=== PATIENT | female | born 1985 | race Caucasian/White ===

== ENCOUNTER 2018-11-20 21:13 | Emergency (ER) | payer MEDICAID, OTHER ==
--- NOTE | 2018-11-20 22:18 | CRLCR ---
INDICATION: pt. twisted left ankle TECHNIQUE: Left ankle 4 views. COMPARISON: None. FINDINGS: Bones: Alignment is normal. No fractures or bone lesions. Joint spaces: Unremarkable. Soft tissues: Unremarkable. IMPRESSION: Unremarkable left ankle. Dictated by: George Johnson MD @ 11/20/2018 22:17:26 (Electronically Signed)
[2018-11-20] MEDS ORDERED: Acetaminophen/HYDROcodone 325-5 MG Tab PO ONE (22:22)
--- NOTE | 2018-11-20 22:22 | EDM.PDOC ---
ED HPI GENERAL MEDICAL PROBLEM - General Chief Complaint: Lower Extremity Injury/Pain Stated Complaint: LEFT ANKLE INJURY Time Seen by Provider: 11/20/18 21:40 Source of Information: Reports: Patient History Limitations: Reports: No Limitations - History of Present Illness INITIAL COMMENTS - FREE TEXT/NARRATIVE: pt arrived with a swollen ankle laterally. She was going up the steps and she twisted the ankle inward. 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: Reports: - Past Surgical History Female Surgical History: Reports: Section Social & Family History - Tobacco Use Smoking Status *Q: Never Smoker - Caffeine Use Caffeine Use: Reports: Coffee - Recreational Drug Use Recreational Drug Use: No Review of Systems - Review of Systems Review Of Systems: See Below Constitutional: Reports: No Symptoms Eyes: Reports: No Symptoms Ears: Reports: No Symptoms Nose: Reports: No Symptoms Mouth/Throat: Reports: No Symptoms Respiratory: Reports: No Symptoms Cardiovascular: Reports: No Symptoms GI/Abdominal: Reports: No Symptoms Musculoskeletal: Reports: Other (pt has pain onm the lateral aspect of the left ankle. ) Skin: Reports: No Symptoms Neurological: Reports: No Symptoms ED EXAM, GENERAL - Physical Exam Exam: See Below Free Text/Narrative:: pt aarrived with pain on the lateral aspect of the left ankle. She is quite uncomfortable when she trys to walk on the ankle. Exam Limited By: No Limitations General Appearance: Alert, Anxious, Mild Distress Ears: Normal TMs Nose: Normal Inspection Throat/Mouth: Normal Inspection Head: Atraumatic Extremities: Other (left ankle is swollen laterally. She is uncomfortable with weight bearing. There is no bruising or discoloratiopn noted at this time. ) Neurological: Alert, Oriented, Normal Cognition Course - Vital Signs Last Recorded V/S: Last Vital Signs Temp 35.7 C 11/20/18 21:37 Pulse 105 H 11/20/18 21:37 Resp 16 06/06/19 21:37 BP 148/94 H 11/20/18 21:37 Pulse Ox 97 11/20/18 21:37 - Orders/Labs/Meds Orders: Active Orders 24 hr Category Date Time Status Ankle Min 3V Lt [CR] Stat Exams 11/20/18 21:43 Taken - Re-Assessments/Exams Free Text/Narrative Re-Assessment/Exam: 11/20/18 22:22 xray did not reveal a fracture. Departure - Departure Time of Disposition: 22:22 Disposition: Home, Self-Care 01 Condition: Fair Clinical Impression: Left ankle sprain - Discharge Information Referrals: Raquel Hdz PA [Primary Care Provider] - Care Plan Goals: elevate, cool pack, stirup splint, crutches motrin 600mg q6h as needed for pain. - My Orders Last 24 Hours: My Active Orders 11/20/18 21:43 Ankle Min 3V Lt [CR] Stat - Assessment/Plan Last 24 Hours: My Active Orders 11/20/18 21:43 Ankle Min 3V Lt [CR] Stat
== END 2018-11-20 22:55 | disposition home or self-care (01) ==
LOC: JP.ED 21:13
DX: S93.402A Sprain of unspecified ligament of left ankle, initial encounter (principal); X50.1XXA Overexertion from prolonged static or awkward postures, initial encounter
CPT/HCPCS: 73610; 99283; A9270

== ENCOUNTER 2022-10-25 05:28 | Day surgery (SDC) | payer MEDICAID ==
[2022-10-25] MEDS ORDERED: Celecoxib 200 MG Cap PO ONE (05:30)
[2022-10-25] MEDS ORDERED: Dextrose 5%-Lactated Ringers 1,000 ML IV SCH (06:00)
[2022-10-25 06:06] LABS: HEMATOCRIT 40.4 % (34.3-46.0); HEMOGLOBIN 14.5 g/dL (11.2-15.5); MEAN CORPUSCULAR HEMOGLOBIN 32.2 pg (31.6-35.5); MEAN CORPUSCULAR HGB CONC 35.9 g/dL (31.6-35.5); MEAN CORPUSCULAR VOLUME 89.6 fL (81.4-99.0); RED BLOOD CELL COUNT 4.51 M/uL (3.77-5.24)
[2022-10-25] MEDS ORDERED: Indocyanine Green 25 MG SDV IV ONE (06:30)
[2022-10-25 06:32] LABS: A/G RATIO 1.1 (1.2-2.2); ALANINE AMINOTRANSFERASE,ALT 23 U/L (12-78); ALBUMIN 3.7 g/dL (3.4-5.0); ALKALINE PHOSPHATASE 66 U/L (46-116); ASPARTATE AMNIOTRANSFERASE,AST 20 U/L (15-37); BILIRUBIN TOTAL 0.5 mg/dL (0.2-1.0); BLOOD UREA NITROGEN,BUN 15 mg/dL (7-18); CALCIUM 8.5 mg/dL (8.5-10.1); CARBON DIOXIDE,CO2 26 mmol/L (21-32); CHLORIDE,CL 104 mmol/L (100-108); CREATININE 0.9 mg/dL (0.6-1.0); EST CRCL DRUG DOSING (CG) 72.47 mL/min; ESTIMATED GFR 83 mL/min (>60); GLUCOSE RANDOM 108 mg/dL (74-106); MAGNESIUM 1.8 mg/dL (1.8-2.4); PHOSPHORUS 4.1 mg/dL (2.5-4.9); POTASSIUM,K 3.7 mmol/L (3.6-5.2); SODIUM,NA 139 mmol/L (140-148)
[2022-10-25 06:33] LABS: ANION GAP 12.7 mmol/L (5.0-14.0)
[2022-10-25] MEDS ORDERED: fentaNYL 250 MCG/5 ML SDV ONE (07:00)
[2022-10-25] MEDS ORDERED: Ondansetron 4 MG/2 ML SDV ONE (07:13)
[2022-10-25] MEDS ORDERED: Glycopyrrolate 0.2 MG/ML 5 ML MDV ONE (07:13)
[2022-10-25] MEDS ORDERED: Propofol 200 MG/20 ML SDV ONE (07:13)
[2022-10-25] MEDS ORDERED: Lidocaine 1% with EPINEPHrine 1:100,000 50 ML MDV ONE (07:13)
[2022-10-25] MEDS ORDERED: Neostigmine Methylsulfate 1 MG/ML 5 ML Syringe ONE (07:13)
[2022-10-25] MEDS ORDERED: Rocuronium 50 MG/5 ML Vial ONE (07:13)
[2022-10-25] MEDS ORDERED: Bupivacaine 0.5% 50 ML MDV ONE (07:13)
[2022-10-25] MEDS ORDERED: Succinylcholine 200 MG/10 ML MDV ONE (07:13)
[2022-10-25] MEDS ORDERED: Dexamethasone 4 MG/ML SDV ONE (07:13)
[2022-10-25] MEDS ORDERED: cefOXitin 2 GM in Sodium Chloride 0.9% 50 ML IV ONE (07:15)
[2022-10-25] MEDS ORDERED: Ketamine 16 MG in Sodium Chloride 0.9% 19.84 ML IV SCH (07:30)
[2022-10-25] MEDS ORDERED: Ketamine 500 MG/5 ML MDV IV SCH (07:30)
[2022-10-25] MEDS ORDERED: fentaNYL 100 MCG/2 ML SDV ONE (07:39)
[2022-10-25] MEDS ORDERED: Indocyanine Green 25 MG SDV ONE (08:12)
[2022-10-25] MEDS ORDERED: HYDROmorphone 2 MG Tab PO PRN (10:10)
== END 2022-10-25 12:06 | disposition home or self-care (01) ==
LOC: JP.SDS 05:28
PROVIDERS: ATTEND Surgery
DX: K80.10 Calculus of gallbladder with chronic cholecystitis without obstruction (principal); E66.9 Obesity, unspecified; Z91.048 Other nonmedicinal substance allergy status; Z68.32 Body mass index [BMI] 32.0-32.9, adult; Z98.890 Other specified postprocedural states
CPT/HCPCS: 36415; 47562; 80053; 83735; 84100; 85027; 88304; A9270; J0131; J0171; J0330; J0694; J1100; J2405; J2704; J2710; J2795; J3010; J3490; J7121